=== PATIENT | female | born 1960 | race Caucasian/White ===

== ENCOUNTER 2017-05-23 09:19 | Emergency (ER) | payer OTHER ==
[~2017-05-23] VITALS: Ht 157.5 cm; Wt 101.8 kg
[~2017-05-23 09:19] MED LIST: ALPR0.254 PO; CEFD300C37 PO; FENO134C PO; HYDR12.58 PO; INSU100V8 SQ; LISI40TA PO; METF500T4 PO; TOPI50TA8 PO
[2017-05-23] MEDS ORDERED: HYDROmorphone 1 MG/ML, 1ML ONE ×2 (10:55→11:59)
[2017-05-23] MEDS ORDERED: ONDANSETRON 2MG/ML, 2ML ONE (10:55)
[2017-05-23] MEDS: HYDROmorphone 1 MG/ML, 1ML IVPush PRN ×2 (10:59→12:02)
[2017-05-23] MEDS ORDERED: SODIUM CHLORIDE 0.9% 1,000ML IV ONE (11:00)
[2017-05-23] MEDS ORDERED: ONDANSETRON 2MG/ML, 2ML IVPush ONE (11:00)
[2017-05-23] MEDS ORDERED: SODIUM CHLORIDE FLUSH 10ML SYR IVF ONE (11:00)
[2017-05-23 11:21] LABS: HEMATOCRIT 45.8 % (34.6-47.8); HEMOGLOBIN 15.5 g/dL (11.7-16.4); WHITE BLOOD COUNT 11.8 x10^3/uL (3.4-10)
[2017-05-23 11:28] LABS: BLOOD UREA NITROGEN 15 mg/dL (7-18)
[2017-05-23 11:31] LABS: ASPARTATE AMINO TRANSFERASE 50 U/L (15-37)
[2017-05-23] MEDS ORDERED: DIPHENHYDRAMINE 50 MG/ML, 1ML ONE (12:20)
[2017-05-23] MEDS ORDERED: methylPREDNISolone SOD SUCC 125 MG/2 ML ONE (12:20)
[2017-05-23] MEDS ORDERED: methylPREDNISolone SOD SUCC 125 MG/2 ML IVP ONE (12:30)
[2017-05-23] MEDS ORDERED: DIPHENHYDRAMINE 50 MG/ML, 1ML IVP ONE (12:30)
[2017-05-23] MEDS ORDERED: OMNIPAQUE 350 MG/ML, 100ML BOTTLE ONE (13:24)
[2017-05-23 13:44] VITALS: BP 135/66
== END 2017-05-23 14:06 | disposition home or self-care (01) ==
LOC: ED 14:00
DX: N30.01 Acute cystitis with hematuria (principal); N20.0 Calculus of kidney; E11.9 Type 2 diabetes mellitus without complications; F17.200 Nicotine dependence, unspecified, uncomplicated
CPT/HCPCS: 36415; 74176; 74177; 80053; 81001; 83690; 85025; 96361; 96374; 96375; 96376; 99285; J1170; J1200; J2405; J2930; J7030; Q9967